=== PATIENT | male | born 1965 | race African-American/Black ===

== ENCOUNTER 2017-11-08 08:31 | Emergency (ER) | payer BC ==
[~2017-11-08] VITALS: Ht 180.3 cm; Wt 97.5 kg
[2017-11-08] MEDS ORDERED: NKM (08:54)
[2017-11-08 08:59] VITALS: BP 188/100
[2017-11-08] MEDS ORDERED: Tetanus/Diptheria/Pertussis Vaccine 0.5ml Syr IM ONE (09:00)
[2017-11-08 09:12] VITALS: BP 188/100
--- NOTE | 2017-11-08 09:17 | Emergency Room Report ---
History of Present Illness General Chief Complaint: Head Injury Source: Patient Present Illness HPI 52-year-old male, no significant past medical history, presenting with left eyebrow/forehead hematoma. Patient states that he was putting something together at his friend's house, and he actually hit his left eyebrow onto a bar. There is no LOC. No nausea vomiting. No blurry vision no motor or sensory loss. Sustained a small abrasion. Tetanus is not up-to-date Allergies: Coded Allergies: No Known Allergies (Unverified , 11/08/17) Patient History Past Medical History: see triage record Past Surgical History: none Pertinent Family History: none Reviewed Nursing Documentation: PMH: Agreed, PSxH: Agreed Nursing Documentation-PMH Past Medical History: No History, Except For Hx Hypertension: Yes Hx Diabetes: Yes Review of Systems All Other Systems: negative except mentioned in HPI Physical Exam Vital Signs Date Time Temp Pulse Resp B/P (MAP) Pulse Ox O2 Delivery O2 Flow Rate FiO2 11/08/17 08:49 97.7 71 17 187/100 96 Room Air 97.7 Sp02 EP Interpretation: reviewed, normal General Appearance: normal inspection, well appearing, no apparent distress, alert, GCS 15, non-toxic Head: normocephalic - small 3cm hematoma L forehead with small abrasion not bleedfing Eyes: bilateral eye normal inspection, bilateral eye PERRL, bilateral eye EOMI ENT: normal ENT inspection, normal pharynx, normal voice, moist mucus membranes Neck: normal inspection, full range of motion, supple Respiratory: normal inspection, lungs clear, normal breath sounds, no respiratory distress, no retraction, no wheezing, speaking full sentences, chest symmetrical Cardiovascular #1: normal inspection, regular rate, rhythm, normal capillary refill Cardiovascular #2: 2+ radial (R), 2+ radial (L) Gastrointestinal: normal inspection, non tender, soft, non-distended, no guarding Musculoskeletal: normal inspection, back normal, normal range of motion, non- tender Neurologic: normal inspection, alert, oriented x3, responsive, clerical office III-XII nml as tested, motor strength/tone normal, sensory intact, normal gait, speech normal Psychiatric: normal inspection, judgement/insight normal, memory normal Skin: normal inspection, normal color, no rash, warm/dry, well hydrated, normal turgor Medical Decision Making Diagnostic Impression: Primary Impression: Traumatic hematoma of forehead ER Course 52-year-old male, sustained abrasion/hematoma to left forehead DDX: Unlikely to be intracranial bleed as patient had very low mechanism, no LOC, no symptoms at this time Plan: Tetanus ER course: Patient has remained stable during ED stay. Disposition: Patient is to be discharged to home. Strict return precautions discussed with patient such as severe RG,nausea, vomiting, numbness or motor weakness which may indicate severe illness. Patient verbalizes understanding and agrees with plan. Please note that this Emergency Department Report was dictated using [employer] table attendant technology software, occasionally this can lead to erroneous entry secondary to interpretation by the dictation equipment Last Vital Signs Date Time Temp Pulse Resp B/P (MAP) Pulse Ox O2 Delivery O2 Flow Rate FiO2 11/08/17 09:12 97.7 79 18 188/100 99 Room Air 97.7 Disposition: HOME, SELF-CARE Condition: Improved Patient Instructions: Head Injury, Adult, [id number], Hematoma, [id number] Yolette Biggs M.D. Nov 08, 2017 09:17
== END 2017-11-08 10:07 | disposition home or self-care (01) ==
LOC: EMR 09:05
DX: S00.83XA Contusion of other part of head, initial encounter (principal); Z23 Encounter for immunization; E11.9 Type 2 diabetes mellitus without complications; I10 Essential (primary) hypertension; W22.8XXA Striking against or struck by other objects, initial encounter; Y92.9 Unspecified place or not applicable
CPT/HCPCS: 90471; 90715; 99283

== ENCOUNTER 2017-12-14 17:15 | Inpatient (IN) | payer BC ==
[~2017-12-14] VITALS: Ht 180.3 cm; Wt 93.0 kg
[~2017-12-14 17:15] MED LIST: NKM
[2017-12-14] MEDS ORDERED: Sodium Chloride 500ML 500 ML IV ONE (17:45)
[2017-12-14] MEDS ORDERED: Aspirin Baby 81mg ORAL ONE (18:00)
--- NOTE | 2017-12-14 18:08 | Emergency Room Report ---
History of Present Illness General Chief Complaint: Generalized Weakness Source: Patient Present Illness HPI 52-year-old male who presented after increased generalized weakness. The patient denies any chest discomfort. Patient had onset during work. He noticed feeling weak all over. Patient prior history of diabetes. He does not check his blood sugars regularly. He denies any shortness of breath. Patient had onset approximately noon. 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 The patient denies any fever. He denies headache. Allergies: Coded Allergies: No Known Allergies (Unverified , 11/08/17) Patient History Past Medical History: DM Reviewed Nursing Documentation: PMH: Agreed; PSxH: Agreed Nursing Documentation-PMH Past Medical History: No History, Except For Hx Hypertension: Yes Hx Diabetes: Yes Review of Systems All Other Systems: negative except mentioned in HPI Physical Exam Vital Signs Date Time Temp Pulse Resp B/P (MAP) Pulse Ox O2 Delivery O2 Flow Rate FiO2 12/14/17 17:23 98.0 91 18 111/78 98 Room Air 98.1 Sp02 EP Interpretation: reviewed, normal General Appearance: normal inspection, well appearing, no apparent distress, alert, GCS 15 Head: atraumatic ENT: normal ENT inspection, hearing grossly normal, normal voice Neck: normal inspection, full range of motion, supple, no bony tend Respiratory: normal inspection, lungs clear, normal breath sounds, no respiratory distress, no retraction, no wheezing Cardiovascular #1: regular rate, rhythm, no edema Gastrointestinal: normal inspection, normal bowel sounds, non tender, soft, no guarding, no hernia Genitourinary: no CVA tenderness Musculoskeletal: normal inspection, back normal, normal range of motion Neurologic: normal inspection, alert, oriented x3, responsive, 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 Differential diagnosis included was not limited to anemia, urinary tract infection, electrolyte abnormality, hypothyroidism, myocardial infarction, myasthenia gravis, dehydration, among others. The EKG interpreted by me showed normal sinus rhythm with nonspecific ST changes. Repeat EKGs showed minimal changes.patient was started on IV fluids.Dr. Gonzales was contacted for inpatient management due to need for inpatient monitoring and treatment. Labs Test 12/14/17 17:59 12/14/17 19:45 White Blood Count 8.2 K/UL (4.8-10.8) Red Blood Count 5.26 M/UL (4.70-6.10) Hemoglobin 15.4 G/DL (14.2-18.0) Hematocrit 46.0 % (42.0-52.0) Mean Corpuscular Volume 88 FL (80-99) Mean Corpuscular Hemoglobin 29.3 PG (27.0-31.0) Mean Corpuscular Hemoglobin Concent 33.4 G/DL (32.0-36.0) Red Cell Distribution Width 11.7 % (11.6-14.8) Platelet Count 241 K/UL (150-450) Mean Platelet Volume 7.5 FL (6.5-10.1) Neutrophils (%) (Auto) 81.9 % (45.0-75.0) Lymphocytes (%) (Auto) 9.1 % (20.0-45.0) Monocytes (%) (Auto) 8.0 % (1.0-10.0) Eosinophils (%) (Auto) 0.2 % (0.0-3.0) Basophils (%) (Auto) 0.7 % (0.0-2.0) Sodium Level 136 MMOL/L (136-145) Potassium Level 5.1 MMOL/L (3.5-5.1) Chloride Level 99 MMOL/L (98-107) Carbon Dioxide Level 22 MMOL/L (21-32) Anion Gap 15 mmol/L (5-15) Blood Urea Nitrogen 32 mg/dL (7-18) Creatinine 2.9 MG/DL (0.55-1.30) Estimat Glomerular Filtration Rate 27.6 mL/min (>60) Glucose Level 261 MG/DL (74-106) Calcium Level 9.9 MG/DL (8.5-10.1) Total Bilirubin 0.7 MG/DL (0.2-1.0) Aspartate Amino Transf (AST/SGOT) 19 U/L (15-37) Alanine Aminotransferase (ALT/SGPT) 39 U/L (12-78) Alkaline Phosphatase 61 U/L (46-116) Total Creatine Kinase 198 U/L (26-308) Troponin I 0.000 ng/mL (0.000-0.056) Total Protein 8.6 G/DL (6.4-8.2) Albumin 4.7 G/DL (3.4-5.0) Globulin 3.9 g/dL Albumin/Globulin Ratio 1.2 (1.0-2.7) Urine Color Yellow Urine Appearance Slightly cloudy Urine pH 5 (4.5-8.0) Urine Specific [place] 1.025 (1.005-1.035) Urine Protein 2+ (NEGATIVE) Urine Glucose (UA) 1+ (NEGATIVE) Urine Ketones 1+ (NEGATIVE) Urine Occult Blood Negative (NEGATIVE) Urine Nitrite Negative (NEGATIVE) Urine Bilirubin 1+ (NEGATIVE) Urine Ictotest Positive Urine Urobilinogen 1 MG/DL (0.0-1.0) Urine Leukocyte Esterase 1+ (NEGATIVE) Urine RBC 0-2 /HPF (0 - 0) Urine WBC 2-4 /HPF (0 - 0) Urine Squamous Epithelial Cells Few /LPF (NONE/OCC) Urine Bacteria Few /HPF (NONE) Urine Opiates Screen Negative (NEGATIVE) Urine Barbiturates Screen Negative (NEGATIVE) Phencyclidine (PCP) Screen Negative (NEGATIVE) Urine Amphetamines Screen Negative (NEGATIVE) Urine Benzodiazepines Screen Negative (NEGATIVE) Urine Cocaine Screen Negative (NEGATIVE) Urine Marijuana (THC) Screen Negative (NEGATIVE) EKG Diagnostic Results Rate: normal Rhythm: NSR ST Segments: no acute changes Last Vital Signs Date Time Temp Pulse Resp B/P (MAP) Pulse Ox O2 Delivery O2 Flow Rate FiO2 12/14/17 17:23 98.0 91 18 111/78 98 Room Air 98.1 Status: unchanged Disposition: ADMITTED INPATIENT Condition: Ramirez Barreto Dec 14, 2017 18:08
[2017-12-14 18:27] LABS: BASOPHILS % (AUTO) 0.7 % (0.0-2.0); EOSINOPHILS % (AUTO) 0.2 % (0.0-3.0); HEMOGLOBIN 15.4 G/DL (14.2-18.0); LYMPHOCYTES % (AUTO) 9.1 % (20.0-45.0); MEAN CORPUSCULAR VOLUME 88 FL (80-99); NEUTROPHILS % (AUTO) 81.9 % (45.0-75.0); PLATELET COUNT 241 K/UL (150-450); RED BLOOD COUNT 5.26 M/UL (4.70-6.10); RED CELL DISTRIBUTION WIDTH 11.7 % (11.6-14.8); WHITE BLOOD COUNT 8.2 K/UL (4.8-10.8)
[2017-12-14 18:44] LABS: ANION GAP 15 mmol/L (5-15); BLOOD UREA NITROGEN 32 mg/dL (7-18); CALCIUM 9.9 MG/DL (8.5-10.1); CARBON DIOXIDE 22 MMOL/L (21-32); CHLORIDE 99 MMOL/L (98-107); CREATININE 2.9 MG/DL (0.55-1.30); POTASSIUM 5.1 MMOL/L (3.5-5.1); SODIUM 136 MMOL/L (136-145)
[2017-12-14 18:54] LABS: ALANINE AMINOTRANSFERASE 39 U/L (12-78); ALBUMIN 4.7 G/DL (3.4-5.0); ALBUMIN/GLOBULIN RATIO 1.2 (1.0-2.7); ALKALINE PHOSPHATASE 61 U/L (46-116); ASPARTATE AMINO TRANSFERASE 19 U/L (15-37); BILIRUBIN,TOTAL 0.7 MG/DL (0.2-1.0)
[2017-12-14 19:17] VITALS: BP 118/78
[2017-12-14] MEDS ORDERED: LISINOPRIL40 MG ORAL (20:16)
[2017-12-14 20:22] LABS: APPEARANCE,URINE SLIGHTLY CLOUDY; BILIRUBIN, URINE 1+ (NEGATIVE); GLUCOSE, URINE (UA) 1+ (NEGATIVE); KETONES,URINE 1+ (NEGATIVE); LEUKOCYTE ESTERASE ,URINE 1+ (NEGATIVE); NITRITE,URINE NEGATIVE (NEGATIVE); PH,URINE 5 (4.5-8.0); PROTEIN,URINE 2+ (NEGATIVE); UROBILINOGEN,URINE 1 MG/DL (0.0-1.0)
[2017-12-14 20:23] LABS: COLOR,URINE YELLOW
[2017-12-14 20:38] LABS: CREATINE KINASE 198 U/L (26-308)
[2017-12-14 21:30] VITALS: BP 118/75
[2017-12-15] VITALS: BP 122/76
[2017-12-15 04:00] VITALS: BP 132/81
[2017-12-15] MEDS ORDERED: Repaglinide 1mg tab ORAL SCH (06:30)
[2017-12-15] MEDS: NovoLOG Insulin Flexpen SUBQ SCH ×4 (07:05→21:06)
[2017-12-15 07:12] LABS: BASOPHILS % (AUTO) 1.2 % (0.0-2.0); EOSINOPHILS % (AUTO) 1.2 % (0.0-3.0); HEMATOCRIT 41.9 % (42.0-52.0); HEMOGLOBIN 14.3 G/DL (14.2-18.0); LYMPHOCYTES % (AUTO) 29.4 % (20.0-45.0); MEAN CORPUSCULAR VOLUME 86 FL (80-99); MONOCYTES % (AUTO) 9.8 % (1.0-10.0); NEUTROPHILS % (AUTO) 58.4 % (45.0-75.0); PLATELET COUNT 224 K/UL (150-450); RED BLOOD COUNT 4.86 M/UL (4.70-6.10); RED CELL DISTRIBUTION WIDTH 11.9 % (11.6-14.8); WHITE BLOOD COUNT 6.7 K/UL (4.8-10.8)
[2017-12-15 07:25] LABS: ALANINE AMINOTRANSFERASE 34 U/L (12-78); ALBUMIN 4.1 G/DL (3.4-5.0); ALBUMIN/GLOBULIN RATIO 1.1 (1.0-2.7); ALKALINE PHOSPHATASE 53 U/L (46-116); ANION GAP 11 mmol/L (5-15); ASPARTATE AMINO TRANSFERASE 15 U/L (15-37); BILIRUBIN,TOTAL 0.7 MG/DL (0.2-1.0); BLOOD UREA NITROGEN 35 mg/dL (7-18); CALCIUM 9.2 MG/DL (8.5-10.1); CARBON DIOXIDE 24 MMOL/L (21-32); CHLORIDE 99 MMOL/L (98-107); CHOLESTEROL 183 MG/DL (< 200); CREATININE 1.9 MG/DL (0.55-1.30); HDL CHOLESTEROL 41 MG/DL (40-60); SODIUM 134 MMOL/L (136-145); TRIGLYCERIDES 56 MG/DL (30-150)
[2017-12-15 08:00] VITALS: BP 155/95
[2017-12-15] MEDS: Heparin 5000 units/ml inj SUBQ SCH ×2 (08:48→21:05)
[2017-12-15] MEDS: Lisinopril 20mg tab ORAL SCH (08:49)
--- NOTE | 2017-12-15 09:07 | Cardiology Progress Note ---
Assessment/Plan Assessment/Plan The patient is seen and examined, full consult note will be dictated shortly. Objective Last 24 Hour Vital Signs Date Time Temp Pulse Resp B/P (MAP) Pulse Ox O2 Delivery O2 Flow Rate FiO2 12/15/17 08:49 155/95 12/15/17 04:00 97.2 62 20 132/81 96 97.2 12/15/17 00:00 97.2 74 20 122/76 97 97.2 12/14/17 22:05 98.0 85 18 118/75 98 Room Air 98.1 12/14/17 21:30 85 18 118/75 98 Room Air 12/14/17 19:17 90 17 118/78 99 Room Air 12/14/17 17:23 98.0 91 18 111/78 98 Room Air 98.1 Intake and Output 12/14/17 12/15/17 19:00 07:00 Intake Total 500 ml 0 ml Balance 500 ml 0 ml Intake Oral 0 ml IV Total 500 ml # Voids 1 Laboratory Tests Test 12/14/17 17:59 12/14/17 19:45 12/15/17 06:15 White Blood Count 8.2 K/UL (4.8-10.8) 6.7 K/UL (4.8-10.8) Red Blood Count 5.26 M/UL (4.70-6.10) 4.86 M/UL (4.70-6.10) Hemoglobin 15.4 G/DL (14.2-18.0) 14.3 G/DL (14.2-18.0) Hematocrit 46.0 % (42.0-52.0) 41.9 % (42.0-52.0) L Mean Corpuscular Volume 88 FL (80-99) 86 FL (80-99) Mean Corpuscular Hemoglobin 29.3 PG (27.0-31.0) 29.5 PG (27.0-31.0) Mean Corpuscular Hemoglobin Concent 33.4 G/DL (32.0-36.0) 34.2 G/DL (32.0-36.0) Red Cell Distribution Width 11.7 % (11.6-14.8) 11.9 % (11.6-14.8) Platelet Count 241 K/UL (150-450) 224 K/UL (150-450) Mean Platelet Volume 7.5 FL (6.5-10.1) 7.7 FL (6.5-10.1) Neutrophils (%) (Auto) 81.9 % (45.0-75.0) H 58.4 % (45.0-75.0) Lymphocytes (%) (Auto) 9.1 % (20.0-45.0) L 29.4 % (20.0-45.0) Monocytes (%) (Auto) 8.0 % (1.0-10.0) 9.8 % (1.0-10.0) Eosinophils (%) (Auto) 0.2 % (0.0-3.0) 1.2 % (0.0-3.0) Basophils (%) (Auto) 0.7 % (0.0-2.0) 1.2 % (0.0-2.0) Sodium Level 136 MMOL/L (136-145) 134 MMOL/L (136-145) L Potassium Level 5.1 MMOL/L (3.5-5.1) 4.0 MMOL/L (3.5-5.1) Chloride Level 99 MMOL/L (98-107) 99 MMOL/L (98-107) Carbon Dioxide Level 22 MMOL/L (21-32) 24 MMOL/L (21-32) Anion Gap 15 mmol/L (5-15) 11 mmol/L (5-15) Blood Urea Nitrogen 32 mg/dL (7-18) H 35 mg/dL (7-18) H Creatinine 2.9 MG/DL (0.55-1.30) H 1.9 MG/DL (0.55-1.30) H Estimat Glomerular Filtration Rate 27.6 mL/min (>60) 45.0 mL/min (>60) Glucose Level 261 MG/DL (74-106) H 157 MG/DL (74-106) #H Calcium Level 9.9 MG/DL (8.5-10.1) 9.2 MG/DL (8.5-10.1) Total Bilirubin 0.7 MG/DL (0.2-1.0) 0.7 MG/DL (0.2-1.0) Aspartate Amino Transf (AST/SGOT) 19 U/L (15-37) 15 U/L (15-37) Alanine Aminotransferase (ALT/SGPT) 39 U/L (12-78) 34 U/L (12-78) Alkaline Phosphatase 61 U/L (46-116) 53 U/L (46-116) Total Creatine Kinase 198 U/L (26-308) Troponin I 0.000 ng/mL (0.000-0.056) Total Protein 8.6 G/DL (6.4-8.2) H 7.7 G/DL (6.4-8.2) Albumin 4.7 G/DL (3.4-5.0) 4.1 G/DL (3.4-5.0) Globulin 3.9 g/dL 3.6 g/dL Albumin/Globulin Ratio 1.2 (1.0-2.7) 1.1 (1.0-2.7) Urine Color Yellow Urine Appearance Slightly cloudy Urine pH 5 (4.5-8.0) Urine Specific [place] 1.025 (1.005-1.035) Urine Protein 2+ (NEGATIVE) H Urine Glucose (UA) 1+ (NEGATIVE) H Urine Ketones 1+ (NEGATIVE) H Urine Occult Blood Negative (NEGATIVE) Urine Nitrite Negative (NEGATIVE) Urine Bilirubin 1+ (NEGATIVE) H Urine Ictotest Positive Urine Urobilinogen 1 MG/DL (0.0-1.0) H Urine Leukocyte Esterase 1+ (NEGATIVE) H Urine RBC 0-2 /HPF (0 - 0) H Urine WBC 2-4 /HPF (0 - 0) Urine Squamous Epithelial Cells Few /LPF (NONE/OCC) Urine Bacteria Few /HPF (NONE) Urine Opiates Screen Negative (NEGATIVE) Urine Barbiturates Screen Negative (NEGATIVE) Phencyclidine (PCP) Screen Negative (NEGATIVE) Urine Amphetamines Screen Negative (NEGATIVE) Urine Benzodiazepines Screen Negative (NEGATIVE) Urine Cocaine Screen Negative (NEGATIVE) Urine Marijuana (THC) Screen Negative (NEGATIVE) Hemoglobin A1c 9.1 % (4.3-6.0) H Pro-B-Type Natriuretic Peptide 17 pg/mL (0-125) Triglycerides Level 56 MG/DL (30-150) Cholesterol Level 183 MG/DL (< 200) LDL Cholesterol 133 mg/dL (<100) H HDL Cholesterol 41 MG/DL (40-60) Cholesterol/HDL Ratio 4.5 (3.3-4.4) H Thyroid Stimulating Hormone (TSH) 0.964 uiU/mL (0.358-3.740) FAN MARTI Dec 15, 2017 09:07
--- NOTE | 2017-12-15 09:29 | History & Physical ---
History and Physical History & Physicial seen and examined,.Dict completed Helen Gonzales MD Dec 15, 2017 09:29
--- NOTE | 2017-12-15 09:32 | General Progress Note ---
Assessment/Plan Status: stable Assessment/Plan 1- general weakness 2- ARF 3- hyperProteimenia 4- DM- uncontrolled- New Plan Endo Nephro Cardio consulted Subjective ROS Limited/Unobtainable: No Constitutional: Reports: malaise HEENT: Reports: no symptoms Cardiovascular: Reports: no symptoms Respiratory: Reports: no symptoms Allergies: Coded Allergies: No Known Allergies (Unverified , 11/08/17) Objective Last 24 Hour Vital Signs Date Time Temp Pulse Resp B/P (MAP) Pulse Ox O2 Delivery O2 Flow Rate FiO2 12/15/17 08:49 155/95 12/15/17 04:00 97.2 62 20 132/81 96 97.2 12/15/17 00:00 97.2 74 20 122/76 97 97.2 12/14/17 22:05 98.0 85 18 118/75 98 Room Air 98.1 12/14/17 21:30 85 18 118/75 98 Room Air 12/14/17 19:17 90 17 118/78 99 Room Air 12/14/17 17:23 98.0 91 18 111/78 98 Room Air 98.1 Intake and Output 12/14/17 12/15/17 19:00 07:00 Intake Total 500 ml 0 ml Balance 500 ml 0 ml Intake Oral 0 ml IV Total 500 ml # Voids 1 Laboratory Tests 12/14/17 17:59: White Blood Count 8.2, Red Blood Count 5.26, Hemoglobin 15.4, Hematocrit 46.0, Mean Corpuscular Volume 88, Mean Corpuscular Hemoglobin 29.3, Mean Corpuscular Hemoglobin Concent 33.4, Red Cell Distribution Width 11.7, Platelet Count 241, Mean Platelet Volume 7.5, Neutrophils (%) (Auto) 81.9H, Lymphocytes (%) (Auto) 9.1L, Monocytes (%) (Auto) 8.0, Eosinophils (%) (Auto) 0.2, Basophils (%) (Auto ) 0.7, Sodium Level 136, Potassium Level 5.1, Chloride Level 99, Carbon Dioxide Level 22, Anion Gap 15, Blood Urea Nitrogen 32H, Creatinine 2.9H, Estimat Glomerular Filtration Rate 27.6, Glucose Level 261H, Calcium Level 9.9, Total Bilirubin 0.7, Aspartate Amino Transf (AST/SGOT) 19, Alanine Aminotransferase ( ALT/SGPT) 39, Alkaline Phosphatase 61, Total Creatine Kinase 198, Troponin I 0.000, Total Protein 8.6H, Albumin 4.7, Globulin 3.9, Albumin/Globulin Ratio 1.2 12/14/17 19:45: Urine Color Yellow, Urine Appearance Slightly cloudy, Urine pH 5, Urine Specific [place] 1.025, Urine Protein 2+H, Urine Glucose (UA) 1+H, Urine Ketones 1+H, Urine Occult Blood Negative, Urine Nitrite Negative, Urine Bilirubin 1+H, Urine Ictotest Positive, Urine Urobilinogen 1H, Urine Leukocyte Esterase 1+H, Urine RBC 0-2H, Urine WBC 2-4, Urine Squamous Epithelial Cells Few , Urine Bacteria Few, Urine Opiates Screen Negative, Urine Barbiturates Screen Negative, Phencyclidine (PCP) Screen Negative, Urine Amphetamines Screen Negative, Urine Benzodiazepines Screen Negative, Urine Cocaine Screen Negative, Urine Marijuana (THC) Screen Negative 12/15/17 06:15: White Blood Count 6.7, Red Blood Count 4.86, Hemoglobin 14.3, Hematocrit 41.9L, Mean Corpuscular Volume 86, Mean Corpuscular Hemoglobin 29.5, Mean Corpuscular Hemoglobin Concent 34.2, Red Cell Distribution Width 11.9, Platelet Count 224, Mean Platelet Volume 7.7, Neutrophils (%) (Auto) 58.4, Lymphocytes (%) (Auto) 29.4, Monocytes (%) (Auto) 9.8, Eosinophils (%) (Auto) 1.2, Basophils (%) (Auto ) 1.2, Sodium Level 134L, Potassium Level 4.0, Chloride Level 99, Carbon Dioxide Level 24, Anion Gap 11, Blood Urea Nitrogen 35H, Creatinine 1.9H, Estimat Glomerular Filtration Rate 45.0, Glucose Level 157#H, Calcium Level 9.2 , Total Bilirubin 0.7, Aspartate Amino Transf (AST/SGOT) 15, Alanine Aminotransferase (ALT/SGPT) 34, Alkaline Phosphatase 53, Total Protein 7.7, Albumin 4.1, Globulin 3.6, Albumin/Globulin Ratio 1.1, Hemoglobin A1c 9.1H, Pro- B-Type Natriuretic Peptide 17, Triglycerides Level 56, Cholesterol Level 183, LDL Cholesterol 133H, HDL Cholesterol 41, Cholesterol/HDL Ratio 4.5H, Thyroid Stimulating Hormone (TSH) 0.964 Height (Feet): 5 Height (Inches): 11.00 Weight (Pounds): 205 General Appearance: no apparent distress EENT: PERRL/EOMI Neck: supple Cardiovascular: normal rate Respiratory/Chest: lungs clear Abdomen: soft Extremities: non-tender 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
[2017-12-15 12:00] VITALS: BP 147/80
[2017-12-15 16:00] VITALS: BP_SYST 130; BP_SYST 132; BP_DIAS 68; BP_DIAS 98
--- NOTE | 2017-12-15 16:04 | Cardiology Report ---
APPROVED REPORT EKG Measurement Heart [id number] Normal sinus rhythm Nonspecific T wave abnormality Abnormal ECG
--- NOTE | 2017-12-15 18:00 | History and Physical Report ---
DATE OF ADMISSION: 12/14/2017 SOURCE OF INFORMATION: Patient and EMR. HISTORY OF PRESENT ILLNESS: The patient is a pleasant 52-year-old male. The patient presented with general weakness. The patient is complaining this problem for the last one or two weeks and it was so bad that the patient could not make it at work, barely could drive himself to the hospital. The patient denies any nausea, vomiting, chest pain, headache, abdominal bleeding, or any urinary problems. At the time of evaluation in the ER, the patient's vital signs were stable. The patient's initial blood work shows abnormal renal function. PAST MEDICAL HISTORY: Hypertension, otherwise denies. PAST SURGICAL HISTORY: Denies. MEDICATIONS: Current hospital medications including sliding scale insulin, lisinopril, and Januvia. FAMILY HISTORY: Reviewed and noncontributory. SOCIAL HISTORY: The patient denies history of illicit drug abuse, smoking, or alcohol abuse. The patient is with children. Lives at home. REVIEW OF SYSTEMS: All 12 elements of review of systems reviewed as mentioned above. Pertinent positive and negative as mentioned above. PHYSICAL EXAMINATION: VITAL SIGNS: Blood pressure 120/80, temperature 98.2, pulse oximetry 98% on room air, respiratory rate 18 to 20, and temperature 97.2. HEAD AND NECK: Atraumatic and normocephalic. CHEST: Clear to auscultation. No wheezing. No crackles. HEART: S1 and S2. Regular rate and rhythm. Negative for S3. Negative for S4. ABDOMEN: Soft. No organomegaly. No tenderness. MUSCULOSKELETAL: No gross lateralized motor deficit. No edema. NEUROLOGY: The patient is awake, alert, and oriented x3. PSYCHIATRIC: Mood and affect are appropriate and normal. LABORATORY DATA: Labs dated 12/14/2017 shows WBC 8.2, hemoglobin 15.4, and platelets of 241,000. Sodium 136, potassium 5.1, BUN 32, and creatinine 2.9. AST and ALT are within normal limits. ASSESSMENT: 1. Acute severe profound fatigue. 2. Acute renal failure. 3. Hyperproteinemia. 4. Diabetes type 2. 5. Hyperlipidemia. 6. Gastrointestinal and deep vein thrombosis prophylaxes. PLAN OF CARE: Given the profound lack of energy justified to do initial evaluation in the hospital. Cardiology and filter machine operator are notified and consulted. Britanyammashane Gonzales M.D. DR: KYLER JOB#: [id number] CC:
[2017-12-15 20:00] VITALS: BP 142/91
[2017-12-16] VITALS: BP 122/76
[2017-12-16 04:00] VITALS: BP 113/76
[2017-12-16] MEDS: Repaglinide 1mg tab ORAL SCH ×3 (06:02→16:44)
[2017-12-16] MEDS: NovoLOG Insulin Flexpen SUBQ SCH ×4 (06:04→20:48)
[2017-12-16 08:00] VITALS: BP 129/85
--- NOTE | 2017-12-16 08:46 | Geriatric Medicine Prog Note ---
DATE: 12/14/2017 SUBJECTIVE: The patient glucose of 264 and was started on . PLAN: Continue drip 10 mg p.o. q.a.m., sliding scale coverage. Yahir Guan M.D. DR: LILY JOB#: [id number] CC:
[2017-12-16] MEDS: Lisinopril 20mg tab ORAL SCH (08:57)
[2017-12-16] MEDS: Heparin 5000 units/ml inj SUBQ SCH ×2 (09:00→20:48)
[2017-12-16 12:00] VITALS: BP 121/80
--- NOTE | 2017-12-16 13:20 | General Progress Note ---
Assessment/Plan Status: stable Assessment/Plan 1. Acute severe profound fatigue. 2. Acute renal failure. 3. Hyperproteinemia. 4. Diabetes type 2.uncontrolled 5. Hyperlipidemia. 6. Gastrointestinal and deep vein thrombosis prophylaxes. Plan Renal US Renal consult If ok by Nephrology , may be a candidate for outpatient followup Subjective ROS Limited/Unobtainable: No Constitutional: Reports: no symptoms HEENT: Reports: no symptoms Cardiovascular: Reports: no symptoms Allergies: Coded Allergies: No Known Allergies (Unverified , 11/08/17) Objective Last 24 Hour Vital Signs Date Time Temp Pulse Resp B/P (MAP) Pulse Ox O2 Delivery O2 Flow Rate FiO2 12/16/17 08:57 129/85 12/16/17 08:00 97.7 77 20 129/85 98 Room Air 97.7 12/16/17 04:00 97.6 68 20 113/76 99 97.6 12/16/17 00:00 98.0 65 20 122/76 96 98.0 12/15/17 20:00 97.5 72 20 142/91 98 97.5 12/15/17 16:00 97.3 72 20 132/98 97 Room Air 97.3 Intake and Output 12/15/17 12/16/17 19:00 07:00 Intake Total 320 ml 1500 ml Balance 320 ml 1500 ml Intake Oral 320 ml 1500 ml # Voids 4 4 # Bowel Movements 1 Height (Feet): 5 Height (Inches): 11.00 Weight (Pounds): 205 General Appearance: no apparent distress EENT: PERRL/EOMI Neck: supple Cardiovascular: normal rate Respiratory/Chest: lungs clear Abdomen: soft Extremities: non-tender, other - atrophied musculature 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
--- NOTE | 2017-12-16 14:41 | Consultation ---
Consult Note Consult Note 52-year-old male who presented after increased generalized weakness. The patient denies any chest discomfort. Patient had onset during work. He noticed feeling weak all over. Patient prior history of diabetes. He does not check his blood sugars regularly. He denies any shortness of breath. Patient had onset approximately noon. 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 The patient denies any fever. He denies headache. Allergies: Coded Allergies: No Known Allergies (Unverified , 11/08/17) Patient History Past Medical History: DM Reviewed Nursing Documentation: PMH: Agreed; PSxH: Agreed Nursing Documentation-PMH Past Medical History: No History, Except For Hx Hypertension: Yes Hx Diabetes: Yes Assessment/Plan acute renal failure- Dehydration DM OOC HTN Plan: Hydrate BS and BP control Avoid Nephrotoxics per orders TRIXIE DENISE Dec 16, 2017 14:41
--- NOTE | 2017-12-16 15:15 | Geriatric Medicine Prog Note ---
DATE: 12/16/2017 ENDOCRINOLOGY PROGRESS NOTE SUBJECTIVE: The patient controlled. OBJECTIVE: VITAL SIGNS: Blood pressure . RESPIRATORY: Clear. CARDIOVASCULAR: Regular. LABORATORY DATA: Glucose . ASSESSMENT: Diabetes mellitus, improved. PLAN: Continue Actos 15 mg p.o. q.a.m. and mg p.o. t.i.d. Yahir Guan M.D. DR: LILY JOB#: [id number] CC:
[2017-12-16 16:00] VITALS: BP 128/80
--- NOTE | 2017-12-16 16:23 | Diagnostic Imaging Report ---
Indication: Abnormal renal function tests Technique: Grayscale and duplex images of the kidneys, retroperitoneum, and bladder were obtained. Comparison: none Findings: Right kidney measures 11.9 cm in length. Left kidney measures 12.3 cm in length. Both kidneys demonstrate normal echogenicity. No hydronephrosis. There are renal cysts bilaterally. Normal inferior vena cava. Bladder is nondistended. Bilateral ureteral jets are demonstrated. Prostate is prominent, calculated volume of 47 mL Impression: Negative for hydronephrosis Bilateral renal cysts Prominent prostate, calculated volume of 47 mL.
--- NOTE | 2017-12-16 17:15 | Geriatric Medicine Prog Note ---
DATE: 12/16/2017 ENDOCRINOLOGY PROGRESS NOTE SUBJECTIVE: The patient controlled. OBJECTIVE: VITAL SIGNS: Blood pressure . RESPIRATORY: Clear. CARDIOVASCULAR: Regular. LABORATORY DATA: Glucose . ASSESSMENT: Diabetes mellitus, improved. PLAN: Continue Actos 15 mg p.o. q.a.m. and mg p.o. t.i.d. Yahir Guan M.D. DR: LILY JOB#: [id number] CC:
--- NOTE | 2017-12-16 20:45 | Consultation ---
DATE OF CONSULTATION: 12/15/2017 CONSULTING PHYSICIAN: Daren Chandra M.D. REFERRING PHYSICIAN: Helen Gonzales M.D. REASON FOR CONSULTATION: Management of presyncope. HISTORY OF PRESENT ILLNESS: The patient is a very unfortunate 52-year-old gentleman who presents today to [facility] with complaints of weakness that started on December 14, 2017. He reports dizziness and generalized weakness. He denies any nausea, vomiting, or any episode of diarrhea. At the time of arrival to the emergency department, his blood pressure was 111/78 mmHg and heart rate 91. A 12-lead electrocardiogram showed sinus rhythm with nonspecific ST and T-wave abnormalities. The patient was admitted non-telemetry given symptoms of presyncope, risk factors for coronary artery disease including diabetes mellitus and hypertension. Cardiology consultation was made at request of Dr. Gonzales for assessment and evaluation of his condition. PAST MEDICAL HISTORY: Includes diabetes mellitus and hypertension. PAST SURGICAL HISTORY: None. MEDICATIONS: List of medications as an outpatient includes lisinopril 40 mg p.o. daily, otherwise total list of medications is not unknown. ALLERGIES: No known drug allergies. SOCIAL HISTORY: Denies any tobacco, alcohol, or illicit drug use. FAMILY HISTORY: No premature coronary artery disease or arrhythmogenic in the first-degree relatives. REVIEW OF SYSTEMS: HEENT: Denies any headache, diplopia, or blurred vision. CONSTITUTIONAL: Complains of generalized weakness but no fever, chills, or night sweats. CARDIOVASCULAR: Denies any chest pain, shortness breath. Denies any PND, orthopnea, or leg swelling. Complains of presyncope but no actual loss of consciousness. PULMONARY: Denies any cough, hemoptysis, or wheezing. GASTROINTESTINAL: Denies any nausea, vomiting, diarrhea, constipation, abdominal pain, or GI bleed. GENITOURINARY: Denies any hematuria, dysuria, or incontinence. NEUROLOGIC: Denies any motor dysfunction, sensory deficit, or altered speech PHYSICAL EXAMINATION: VITAL SIGNS: Blood pressure is 111/78, respirations 18, pulse of 91, O2 saturation 98% on room air, and temperature 98.0 degrees Fahrenheit. GENERAL: The patient is a very unfortunate 52-year-old gentleman, no apparent respiratory distress, alert and oriented. HEENT: Atraumatic and normocephalic. Anicteric. Pupils are equal, round, and reactive to light and accommodation. Extraocular muscles intact. NECK: JVP less than 5 cm. No carotid bruit. Carotid upstrokes 2+ bilaterally. CVS: Normal S1 and S2. Regular rate and rhythm. No murmurs, gallops, or rubs. PMI is at fourth intercostal space at the midclavicular line. ABDOMEN: Soft, nontender, and nondistended. No hepatosplenomegaly. Positive bowel sounds. EXTREMITIES: No evidence of edema, clubbing, or cyanosis. LABORATORY AND DIAGNOSTIC DATA: Laboratory findings, WBC was 8.2, hemoglobin 15.4, hematocrit 46.0, and platelet count 241. Sodium is 136, potassium 5.1, chloride 99, bicarbonate 22, BUN of 32, creatinine 2.9, glucose is 261, and calcium is 9.9. Troponin-I 0.0. Toxicology was negative. ASSESSMENT: The patient is a very unfortunate 52-year-old gentleman who is seen in Cardiology consultation at request of Dr. Gonzales. 1. Presyncope. There is no associated loss of consciousness. I would believe that the patient might be having intravascular volume contraction. I would like to go him a fluid challenge of 250 mL normal saline. Of note, his creatinine is elevated, this could be due to prerenal causes or acute tubular necrosis or postobstructive etiologies. A Nephrology consultation will be required. We would also like to obtain orthostatic vitals, and obtain 2D echocardiography for assessment of LV systolic function. 2. Renal failure. 3. History of diabetes mellitus. 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 4. History of hypertension. I would place hold on WILTON inhibitor and angiotensin receptor blockers. We will try to manage hypertension with calcium channel blockers. I would like to thank, Dr. Gonzales, for the courtesy of this consultation. Daren Chandra M.D. DR: You JOB#: [id number] CC:
[2017-12-16] MEDS: Aspirin EC 81mg tab ORAL SCH (20:46)
[2017-12-16] MEDS ORDERED: Atorvastatin 20mg tab ORAL SCH (21:00)
[2017-12-17] VITALS (7 sets, daily range): BP systolic 98–144; BP diastolic 65–100
[2017-12-17] MEDS: Repaglinide 1mg tab ORAL SCH ×3 (05:52→18:29)
[2017-12-17] MEDS: NovoLOG Insulin Flexpen SUBQ SCH ×3 (05:53→18:30)
[2017-12-17 07:51] LABS: HEMATOCRIT 40.8 % (42.0-52.0); HEMOGLOBIN 13.4 G/DL (14.2-18.0); MEAN CORPUSCULAR VOLUME 87 FL (80-99); PLATELET COUNT 209 K/UL (150-450); RED BLOOD COUNT 4.67 M/UL (4.70-6.10); RED CELL DISTRIBUTION WIDTH 11.6 % (11.6-14.8); WHITE BLOOD COUNT 2.9 K/UL (4.8-10.8)
[2017-12-17 08:17] LABS: ALANINE AMINOTRANSFERASE 25 U/L (12-78); ALBUMIN 3.7 G/DL (3.4-5.0); ALBUMIN/GLOBULIN RATIO 1.1 (1.0-2.7); ALKALINE PHOSPHATASE 48 U/L (46-116); ANION GAP 7 mmol/L (5-15); ASPARTATE AMINO TRANSFERASE 10 U/L (15-37); BILIRUBIN,TOTAL 0.6 MG/DL (0.2-1.0); BLOOD UREA NITROGEN 25 mg/dL (7-18); CALCIUM 8.8 MG/DL (8.5-10.1); CARBON DIOXIDE 26 MMOL/L (21-32); CHLORIDE 104 MMOL/L (98-107); CHOLESTEROL 182 MG/DL (< 200); CREATINE KINASE 58 U/L (26-308); CREATININE 1.4 MG/DL (0.55-1.30); GAMMA GLUTAMYL TRANSPEPTIDASE 21 U/L (5-85); HDL CHOLESTEROL 33 MG/DL (40-60); PHOSPHORUS 3.5 MG/DL (2.5-4.9); POTASSIUM 4.1 MMOL/L (3.5-5.1); SODIUM 137 MMOL/L (136-145); TRIGLYCERIDES 103 MG/DL (30-150)
[2017-12-17] MEDS: Lisinopril 10mg tab ORAL SCH ×2 (08:56→18:30)
[2017-12-17] MEDS: Aspirin EC 81mg tab ORAL SCH (08:56)
[2017-12-17] MEDS: Heparin 5000 units/ml inj SUBQ SCH (09:00)
[2017-12-17] MEDS ORDERED: Lisinopril 10mg tab ORAL SCH (09:00)
--- NOTE | 2017-12-17 11:31 | Nephrology Progress Note ---
Assessment/Plan Problem List: (1) Acute renal injury (2) Dehydration (3) Hyperglycemia Assessment acute renal failure- Dehydration DM OOC HTN Plan Plan: Hydrate BS and BP control Avoid Nephrotoxics start Glucophage per orders Subjective ROS Limited/Unobtainable: No Objective Objective Last 24 Hour Vital Signs Date Time Temp Pulse Resp B/P (MAP) Pulse Ox O2 Delivery O2 Flow Rate FiO2 12/17/17 09:00 74 75 78 12/17/17 08:56 134/81 12/17/17 08:00 97.6 74 18 134/82 98 Room Air 97.6 12/17/17 04:00 97.4 58 21 132/84 98 97.4 12/17/17 00:00 98.4 77 18 144/100 97 Room Air 98.4 12/16/17 20:00 98.4 70 18 96 Room Air 98.4 12/16/17 16:00 98.0 90 18 128/80 99 Room Air 98.0 12/16/17 12:00 97.2 88 20 121/80 100 Room Air 97.2 Intake and Output 12/16/17 12/17/17 19:00 07:00 Intake Total 770 ml 1000 ml Balance 770 ml 1000 ml Intake Oral 770 ml IV Total 1000 ml # Voids 5 2 Laboratory Tests 12/16/17 19:43: C-Reactive Protein, Quantitative 0.8 12/17/17 06:25: White Blood Count 2.9L, Red Blood Count 4.67L, Hemoglobin 13.4L, Hematocrit 40.8L, Mean Corpuscular Volume 87, Mean Corpuscular Hemoglobin 28.7, Mean Corpuscular Hemoglobin Concent 32.9, Red Cell Distribution Width 11.6, Platelet Count 209, Mean Platelet Volume 7.9, Neutrophils (%) (Auto) , Lymphocytes (%) ( Auto) , Monocytes (%) (Auto) , Eosinophils (%) (Auto) , Basophils (%) (Auto) , Differential Total Cells Counted 100, Neutrophils % (Manual) 19L, Lymphocytes % (Manual) 68H, Monocytes % (Manual) 11H, Eosinophils % (Manual) 2, Basophils % ( Manual) 0, Band Neutrophils 0, Platelet Estimate Adequate, Platelet Morphology Normal, Red Blood Cell Morphology Normal, Sodium Level 137, Potassium Level 4.1 , Chloride Level 104, Carbon Dioxide Level 26, Anion Gap 7, Blood Urea Nitrogen 25H, Creatinine 1.4H, Estimat Glomerular Filtration Rate > 60, Glucose Level 142H, Uric Acid 6.1, Calcium Level 8.8, Phosphorus Level 3.5, Magnesium Level 2.0, Total Bilirubin 0.6, Gamma Glutamyl Transpeptidase 21, Aspartate Amino Transf (AST/SGOT) 10L, Alanine Aminotransferase (ALT/SGPT) 25, Alkaline Phosphatase 48, Total Creatine Kinase 58, Pro-B-Type Natriuretic Peptide 17, Total Protein 7.1, Albumin 3.7, Globulin 3.4, Albumin/Globulin Ratio 1.1, Triglycerides Level 103, Cholesterol Level 182, LDL Cholesterol 135H, HDL Cholesterol 33L, Cholesterol/HDL Ratio 5.5H, Thyroid Stimulating Hormone (TSH) 2.476 Height (Feet): 5 Height (Inches): 11.00 Weight (Pounds): 205 General Appearance: no apparent distress Objective pe not changed TRIXIE DENISE Dec 17, 2017 11:30
[2017-12-17] MEDS: metFORMIN 500mg tab ORAL SCH ×2 (12:23→18:29)
[2017-12-17] MEDS ORDERED: ASPIRIN EC81 MG ORAL (12:47)
[2017-12-17] MEDS ORDERED: LISINOPRIL10 MG ORAL (12:48)
[2017-12-17] MEDS ORDERED: LIPITOR20 MG ORAL (12:48)
[2017-12-17] MEDS ORDERED: PRANDIN1 MG ORAL (12:48)
--- NOTE | 2017-12-17 18:02 | Internal Med Progress Note ---
Subjective Date of Service: Dec 17, 2017 Physician Name Kuldeep Baird Attending Physician Helen Gonzales MD Current Medications Medications (Trade) Dose Ordered Sig/Cristhian Route PRN Reason Start Time Stop Time Status Last Admin Dose Admin Acetaminophen (Tylenol) 650 mg Q6H PRN ORAL Mild Pain/Temp > 100.5 12/14/17 21:15 01/13/18 21:14 Aspirin (Ecotrin) 81 mg DAILY ORAL 12/16/17 19:45 01/15/18 19:44 12/17/17 08:56 Atorvastatin Calcium (Lipitor) 40 mg BEDTIME ORAL 12/16/17 21:00 01/15/18 20:59 12/16/17 20:46 Dextrose (Dextrose 50%) STAT PRN IV Hypoglycemia 12/15/17 04:30 01/14/18 04:29 Heparin Sodium (Porcine) (Heparin 5000 units/ml) 5,000 units EVERY 12 HOURS SUBQ 12/15/17 09:00 01/14/18 08:59 12/16/17 20:48 Insulin Aspart (NovoLOG) BEFORE MEALS AND HS SUBQ 12/15/17 06:30 01/14/18 06:29 12/17/17 05:53 Lisinopril (Zestril) 10 mg BID ORAL 12/17/17 09:15 01/14/18 09:14 12/17/17 08:56 Metformin HCl (Glucophage) 500 mg TIAC ORAL 12/17/17 11:30 01/16/18 11:29 12/17/17 12:23 Pantoprazole (Protonix) 40 mg DAILY ORAL 12/15/17 09:00 01/14/18 08:59 12/17/17 08:56 Repaglinide (Prandin) 1 mg TIAC ORAL 12/16/17 06:30 01/15/18 06:29 12/17/17 12:23 Sodium Chloride 1,000 ml @ 100 mls/hr Q10H IV 12/16/17 14:45 01/15/18 14:44 12/17/17 02:24 Allergies: Coded Allergies: No Known Allergies (Unverified , 11/08/17) ROS Limited/Unobtainable: No Constitutional: Reports: malaise, weakness HEENT: Reports: no symptoms Cardiovascular: Reports: no symptoms Respiratory: Reports: no symptoms Gastrointestinal/Abdominal: Reports: no symptoms Genitourinary: Reports: no symptoms Neurologic/Psychiatric: Reports: no symptoms Subjective 52 YO M admitted with generalized weakness. Now acute renal failure. Cover for Int Richard-Dr Gonzales Objective Last Vital Signs Date Time Temp Pulse Resp B/P (MAP) Pulse Ox O2 Delivery O2 Flow Rate FiO2 12/17/17 16:39 98.2 81 19 143/96 96 Room Air 98.2 General Appearance: WD/WN, no apparent distress, alert EENT: PERRL/EOMI, normal ENT inspection, TMs normal Neck: non-tender, normal alignment, supple Cardiovascular: normal peripheral pulses, normal rate, regular rhythm, no gallop/murmur, no JVD Respiratory/Chest: chest wall non-tender, lungs clear, normal breath sounds, no respiratory distress, no accessory muscle use Abdomen: normal bowel sounds, non tender, soft, no organomegaly, no mass Extremities: normal range of motion, non-tender 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, no motor/sensory deficits Skin: normal pigmentation, warm/dry Laboratory Tests Test 12/16/17 19:43 12/17/17 06:25 C-Reactive Protein, Quantitative 0.8 mg/dL (0.00-0.90) White Blood Count 2.9 K/UL (4.8-10.8) L Red Blood Count 4.67 M/UL (4.70-6.10) L Hemoglobin 13.4 G/DL (14.2-18.0) L Hematocrit 40.8 % (42.0-52.0) L Mean Corpuscular Volume 87 FL (80-99) Mean Corpuscular Hemoglobin 28.7 PG (27.0-31.0) Mean Corpuscular Hemoglobin Concent 32.9 G/DL (32.0-36.0) Red Cell Distribution Width 11.6 % (11.6-14.8) Platelet Count 209 K/UL (150-450) Mean Platelet Volume 7.9 FL (6.5-10.1) Neutrophils (%) (Auto) % (45.0-75.0) Lymphocytes (%) (Auto) % (20.0-45.0) Monocytes (%) (Auto) % (1.0-10.0) Eosinophils (%) (Auto) % (0.0-3.0) Basophils (%) (Auto) % (0.0-2.0) Differential Total Cells Counted 100 Neutrophils % (Manual) 19 % (45-75) L Lymphocytes % (Manual) 68 % (20-45) H Monocytes % (Manual) 11 % (1-10) H Eosinophils % (Manual) 2 % (0-3) Basophils % (Manual) 0 % (0-2) Band Neutrophils 0 % (0-8) Platelet Estimate Adequate Platelet Morphology Normal Red Blood Cell Morphology Normal Sodium Level 137 MMOL/L (136-145) Potassium Level 4.1 MMOL/L (3.5-5.1) Chloride Level 104 MMOL/L (98-107) Carbon Dioxide Level 26 MMOL/L (21-32) Anion Gap 7 mmol/L (5-15) Blood Urea Nitrogen 25 mg/dL (7-18) H Creatinine 1.4 MG/DL (0.55-1.30) H Estimat Glomerular Filtration Rate > 60 mL/min (>60) Glucose Level 142 MG/DL (74-106) H Uric Acid 6.1 MG/DL (2.6-7.2) Calcium Level 8.8 MG/DL (8.5-10.1) Phosphorus Level 3.5 MG/DL (2.5-4.9) Magnesium Level 2.0 MG/DL (1.8-2.4) Total Bilirubin 0.6 MG/DL (0.2-1.0) Gamma Glutamyl Transpeptidase 21 U/L (5-85) Aspartate Amino Transf (AST/SGOT) 10 U/L (15-37) L Alanine Aminotransferase (ALT/SGPT) 25 U/L (12-78) Alkaline Phosphatase 48 U/L (46-116) Total Creatine Kinase 58 U/L (26-308) Pro-B-Type Natriuretic Peptide 17 pg/mL (0-125) Total Protein 7.1 G/DL (6.4-8.2) Albumin 3.7 G/DL (3.4-5.0) Globulin 3.4 g/dL Albumin/Globulin Ratio 1.1 (1.0-2.7) Triglycerides Level 103 MG/DL (30-150) Cholesterol Level 182 MG/DL (< 200) LDL Cholesterol 135 mg/dL (<100) H HDL Cholesterol 33 MG/DL (40-60) L Cholesterol/HDL Ratio 5.5 (3.3-4.4) H Thyroid Stimulating Hormone (TSH) 2.476 uiU/mL (0.358-3.740) Intake and Output 12/16/17 12/17/17 19:00 07:00 Intake Total 770 ml 1000 ml Balance 770 ml 1000 ml Intake Oral 770 ml IV Total 1000 ml # Voids 5 2 Assessment/Plan Problem List: (1) Near syncope Assessment & Plan: Cardiology work-up in progress. (2) Generalized weakness (3) Acute renal failure (ARF) Assessment & Plan: Dehydration. Continue IV fluid per nephrology note. (4) Diabetes mellitus, type II Assessment & Plan: See endocrinology note. (5) Hypercholesteremia (6) Episode of generalized weakness Status: not improved KULDEEP BAIRD Dec 17, 2017 18:02
--- NOTE | 2017-12-17 23:04 | Cardiology Progress Note ---
Assessment/Plan Assessment/Plan 1. Presyncope, responded well to hydration, 2D echo shows normal LV systolic function. 2. BETHANIE, creat is downtrending. 3. History of diabetes mellitus, continue aspirin and statins. 4. History of hypertension, continue lisinopril. Subjective Subjective Not on the telemetry unit. Denies chest pain or SOB. Objective Last 24 Hour Vital Signs Date Time Temp Pulse Resp B/P (MAP) Pulse Ox O2 Delivery O2 Flow Rate FiO2 12/17/17 18:30 143/96 12/17/17 16:39 98.2 81 19 143/96 96 Room Air 98.2 12/17/17 16:00 98.9 86 18 98/65 100 Room Air 98.9 12/17/17 12:00 98.5 71 18 129/78 98 Room Air 98.5 12/17/17 09:00 74 75 78 12/17/17 08:56 134/81 12/17/17 08:00 97.6 74 18 134/82 98 Room Air 97.6 12/17/17 04:00 97.4 58 21 132/84 98 97.4 12/17/17 00:00 98.4 77 18 144/100 97 Room Air 98.4 Intake and Output 12/16/17 12/17/17 19:00 07:00 Intake Total 770 ml 1000 ml Balance 770 ml 1000 ml Intake Oral 770 ml IV Total 1000 ml # Voids 5 2 2D Echo: EF 60%, Mild MR, Normal LV Diastolic fxn, RVSP 30 mmHg Laboratory Tests Test 12/17/17 06:25 White Blood Count 2.9 K/UL (4.8-10.8) L Red Blood Count 4.67 M/UL (4.70-6.10) L Hemoglobin 13.4 G/DL (14.2-18.0) L Hematocrit 40.8 % (42.0-52.0) L Mean Corpuscular Volume 87 FL (80-99) Mean Corpuscular Hemoglobin 28.7 PG (27.0-31.0) Mean Corpuscular Hemoglobin Concent 32.9 G/DL (32.0-36.0) Red Cell Distribution Width 11.6 % (11.6-14.8) Platelet Count 209 K/UL (150-450) Mean Platelet Volume 7.9 FL (6.5-10.1) Neutrophils (%) (Auto) % (45.0-75.0) Lymphocytes (%) (Auto) % (20.0-45.0) Monocytes (%) (Auto) % (1.0-10.0) Eosinophils (%) (Auto) % (0.0-3.0) Basophils (%) (Auto) % (0.0-2.0) Differential Total Cells Counted 100 Neutrophils % (Manual) 19 % (45-75) L Lymphocytes % (Manual) 68 % (20-45) H Monocytes % (Manual) 11 % (1-10) H Eosinophils % (Manual) 2 % (0-3) Basophils % (Manual) 0 % (0-2) Band Neutrophils 0 % (0-8) Platelet Estimate Adequate Platelet Morphology Normal Red Blood Cell Morphology Normal Sodium Level 137 MMOL/L (136-145) Potassium Level 4.1 MMOL/L (3.5-5.1) Chloride Level 104 MMOL/L (98-107) Carbon Dioxide Level 26 MMOL/L (21-32) Anion Gap 7 mmol/L (5-15) Blood Urea Nitrogen 25 mg/dL (7-18) H Creatinine 1.4 MG/DL (0.55-1.30) H Estimat Glomerular Filtration Rate > 60 mL/min (>60) Glucose Level 142 MG/DL (74-106) H Uric Acid 6.1 MG/DL (2.6-7.2) Calcium Level 8.8 MG/DL (8.5-10.1) Phosphorus Level 3.5 MG/DL (2.5-4.9) Magnesium Level 2.0 MG/DL (1.8-2.4) Total Bilirubin 0.6 MG/DL (0.2-1.0) Gamma Glutamyl Transpeptidase 21 U/L (5-85) Aspartate Amino Transf (AST/SGOT) 10 U/L (15-37) L Alanine Aminotransferase (ALT/SGPT) 25 U/L (12-78) Alkaline Phosphatase 48 U/L (46-116) Total Creatine Kinase 58 U/L (26-308) Pro-B-Type Natriuretic Peptide 17 pg/mL (0-125) Total Protein 7.1 G/DL (6.4-8.2) Albumin 3.7 G/DL (3.4-5.0) Globulin 3.4 g/dL Albumin/Globulin Ratio 1.1 (1.0-2.7) Triglycerides Level 103 MG/DL (30-150) Cholesterol Level 182 MG/DL (< 200) LDL Cholesterol 135 mg/dL (<100) H HDL Cholesterol 33 MG/DL (40-60) L Cholesterol/HDL Ratio 5.5 (3.3-4.4) H Thyroid Stimulating Hormone (TSH) 2.476 uiU/mL (0.358-3.740) Objective HEENT: Atraumatic and normocephalic. Anicteric. Pupils are equal, round, and reactive to light and accommodation. Extraocular muscles intact. NECK: JVP less than 5 cm. No carotid bruit. Carotid upstrokes 2+ bilaterally. CVS: Normal S1 and S2. Regular rate and rhythm. No murmurs, gallops, or rubs. PMI is at fourth intercostal space at the midclavicular line. ABDOMEN: Soft, nontender, and nondistended. No hepatosplenomegaly. Positive bowel sounds. EXTREMITIES: No evidence of edema, clubbing, or cyanosis. LABORATORY AND DIAGNOSTIC DATA: Laboratory findings FAN MARTI Dec 17, 2017 23:04
--- NOTE | 2017-12-19 08:51 | Discharge Summary ---
Discharge Summary Discharge Summary Discharge Summary DATE OF ADMISSION: 12/14/2017 DATE OF DISCHARGE: 12/17/2017 REASON FOR ADMISSION: 52 years old male with past medical history of diabetes, hyperlipidemia and hypertension, presented to emergency department with increased generalized weakness. The patient denied chest discomfort or shortness of breath. Patient does not check his blood sugar regularly. 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 Onset of symptoms started during the work. He denied fever, chills, no headache no abdominal symptoms. Upon evaluation in emergency department blood pressure was on the low side . Laboratory workup demonstrated acute kidney injury with a BUN of 32 and creatinine of 2.9. Urine toxicology screen was negative , troponin was negative. ECG with normal sinus rhythm, no acute ischemic changes. CK within normal limits. Urinalysis +2 protein. Patient was diagnosed with acute renal failure, acute severe profound fatigue and was transferred to telemetry floor for further management HOSPITAL COURSE: Patient admitted. Patient started on IV hydration. Nephrology Dr. Castañeda, prop worker Dr Chandra , biztalk consultant Dr. Guan seen , evaluated and followed the patient during the stay in the hospital. Per cardiology patient had presyncopal episode which responded to hydration.. Echocardiogram revealed preserved ejection fraction of 60%, normal left ventricular chamber size, systolic function and wall motion. Right ventricular systolic pressure of delivery. Blood pressure was managed with WILTON inhibitor. Metal Flow Coordinator recommended aspirin, statin and WILTON inhibitor . Food Service Technician closely followed . With IV hydration creatinine and down to 1.4 and BUN down to 25. Ultrasound revealed normal bilateral kidney echogenicity and no hydronephrosis. Nephrotoxics were avoided. Conveyor Mechanic optimized anti-glycemic medication regimen. Hemoglobin A1c -9.1, clearly not typical. Patient was on oral anti-glycemic and sliding scale insulin as needed. Patient will need further optimization of the glycemic regimen as outpatient which was explained to the patient. Lipid panel revealed elevated LDL of 135, low HDL of 33. Patient was on statin. Patient was counseled on low-fat low-cholesterol cardiac diabetic diet. Patient was counseled to be compliant with medication regimen and follow-up on a regular basis with his primary care provider. Patient clinically improved :acute renal failure resolved, blood pressure was stable, blood sugar was controlled with current regimen. pPatient was stable for discharge FINAL DIAGNOSES: 1. Acute renal failure 2. Dehydration 3. Acute severe profound fatigue secondary to presyncope and dehydration, resolved 4. Diabetes mellitus out of control 5. Hypertension 6. Hyperlipidemia DISCHARGE MEDICATIONS: See Medication Reconciliation list. DISCHARGE INSTRUCTIONS: Patient was discharged home Follow up with primary care provider in one week. I have been assigned to dictate discharge summary for this account. I was not involved in the patient's management. Johan (NateCecilia gamez NP Dec 19, 2017 08:51
--- NOTE | 2017-12-20 08:11 | Cardiology Report ---
APPROVED REPORT EXAM: Two-dimensional and M-mode echocardiogram with Doppler and color Doppler. INDICATION LV FUNCTION M-Mode DIMENSIONS IVSd1.6 (0.7-1.1cm)Left Atrium (MM)2.9 (1.6-4.0cm) LVDd5.9 (3.5-5.6cm)Aortic Root3.6 (2.0-3.7cm) PWd1.5 (0.7-1.1cm)Aortic Cusp Exc.2.1 (1.5-2.0cm) IVSs2.1 cm LVDs4.1 (2.5-4.0cm) PWs2.0 cm Normal left ventricular chamber size, systolic function and wall motion to extent visualized. Left ventricular ejection fraction estimated to be 60 %. No evidence of pericardial effusion. Mild left ventricular hypertrophy by 2-D. All other cardiac chamber sizes are within normal limits. Normal pulmonic valve structure. Normal tricuspid valve structure. IVC at normal size with physiologic collapse. A color flow and spectral Doppler study was performed and revealed: No aortic regurgitation. Mild mitral regurgitation. Normal left ventricular diastolic function . Mild tricuspid regurgitation. Tricuspid systolic velocities suggests peak right ventricular systolic pressure of30 mmHg. No Pulmonic regurgitation present.
== END 2017-12-17 19:10 | disposition home or self-care (01) | DRG 684 ==
LOC: EMR 18:00 → 4E 19:12 → EDBEDREQ 20:46
DX: N17.9 Acute kidney failure, unspecified (principal); E11.65 Type 2 diabetes mellitus with hyperglycemia; E78.5 Hyperlipidemia, unspecified; E86.0 Dehydration; I10 Essential (primary) hypertension; E78.00 Pure hypercholesterolemia, unspecified; R55 Syncope and collapse; E87.5 Hyperkalemia
CPT/HCPCS: 36415; 76770; 80053; 80061; 80307; 81001; 82550; 82962; 82977; 83036; 83735; 83880; 84100; 84443; 84484; 84550; 85007; 85025; 86140; 93005; 93306; 99285; J1815